=== PATIENT | male | born 1985 | race Caucasian/White ===

== ENCOUNTER 2020-12-09 22:26 | Emergency (ER) | payer SELFPAY ==
[2020-12-09 22:31] VITALS: BP 111/76; PULSE 78; TEMP 98; BMI 27.8
[2020-12-10] MEDS ORDERED: IBUPROFEN 600 MG TABLET (FP) PO ONE (00:39)
== END 2020-12-10 00:58 | disposition home or self-care (01) ==
LOC: JER 22:26
DX: B35.3 Tinea pedis (principal); L05.91 Pilonidal cyst without abscess
CPT/HCPCS: 82962; 99283-25